=== PATIENT | female | born 2000 | race Asian ===

== ENCOUNTER 2022-01-10 22:51 | Emergency (ER) | payer BC, SELFPAY ==
[2022-01-10 22:59] VITALS: BP 111/76; BP 130/80; PULSE 69; PULSE 90; RESP 16; TEMP 36.7; O2SAT 100; O2SAT 99; BMI 19.8
[2022-01-11 00:44] VITALS: BP 95/58; PULSE 59; RESP 16; TEMP 36.2; O2SAT 98
--- NOTE | 2022-01-11 00:50 | ED_ITS ---
HPI - Alcohol General Chief Complaint: ETOH/Substance Use Stated Complaint: ETOH Time Seen by Provider: 01/11/22 00:49 History of Present Illness HPI narrative: 21-year-old female presents today after drinking alcohol. Denies any suicidal homicidal ideation patient was at a [employer] earlier. Positive nausea vomiting no other complaints. Denies any other recreational drugs Related Data Allergies Allergy/AdvReac Type Severity Reaction Status Date / Time No Known Allergies Allergy Verified 01/11/22 00:50 Review of Systems Review of Systems: Positive ETOH No chest pain or shortness of breath Yes all other systems are reviewed and are negative FORMERLY [facility], 1928–1983 Past Medical History Attestation statement: The following information was validated with the patient. Social History Social History Patient : No Physical Exam ED Vital Signs: Vital Signs - 24 hr 01/10/22 22:59 01/11/22 00:44 Temperature 98.1 F 97.1 F Pulse Rate 69 59 Respiratory Rate 16 16 Blood Pressure 111/76 95/58 L Pulse Oximetry 100 98 BMI result Body Mass Index 19.8 Appearance: Alert. Oriented X3. No acute distress. Eyes: Pupils equal, round and reactive to light. ENT: Pharynx normal. Neck: Normal inspection. Neck supple. No lymph nodes noted. No crepitus CVS: Normal heart rate and rhythm. Pulses normal. Normal S1 and S2 Respiratory: No respiratory distress. Breath sounds normal. No Wheezing. No rales Abdomen: Soft and nontender. No rigidity. No distention. good BS x4 Skin: Skin warm and dry. Normal skin color. Normal skin turgor. Extremities: No lower extremity edema. Neurovascular intact to all extremities. No Lacerations. No Rash Neuro: Oriented X 3. No motor deficit. No sensory deficit. Moving all extermities. No slurred speech MDM - Alcohol MDM Narrative Medical decision making narrative: Patient intoxicated earlier. Now awake alert. No distress. Ambulatory. Will discharge patient home Discharge Plan Discharge Clinical Impression: Alcoholic intoxication Patient Disposition: Home, Self-Care Instructions: Alcohol Intoxication (ED) Referrals: Physician,Unknown J [Primary Care Provider] - (Please stop drinking alcohol.)
--- NOTE | 2022-01-11 01:00 | PC.NURSE ---
PT stated that she is feeling a lot better and that she is sobering up. PT refused an IV and meds at this time. PT denied any nausea or vomiting.
[2022-01-11 02:15] VITALS: BP 109/69; PULSE 83; RESP 12; O2SAT 99
== END 2022-01-11 02:49 | disposition home or self-care (01) ==
LOC: HO.ED 01-11 02:17
PROVIDERS: Emergency Provider Emergency Medicine Emergency Medical Services
DX: F10.129 Alcohol abuse with intoxication, unspecified (principal); Y90.9 Presence of alcohol in blood, level not specified
CPT/HCPCS: 96361; 96374; 99284